=== PATIENT | female | born 1960 | race Caucasian/White ===

== ENCOUNTER 2018-12-25 07:23 | Inpatient (IN) | payer SELFPAY ==
[~2018-12-25] VITALS: Ht 157.5 cm; Wt 182.0 kg
[2018-12-25 07:30] VITALS: Ht 157.5 cm; Wt 182.0 kg
[2018-12-25 08:13] LABS: PLATELET COUNT 311 x10^3mcL (130-400)
[2018-12-25 08:15] LABS: RED CELL DISTRIBUTION WIDTH 14.9 % (11.5-14.5)
[2018-12-25 08:16] LABS: BASOPHIL % 0 % (0-2)
[2018-12-25 08:42] LABS: CALCIUM 9.8 mg/dL (8.5-10.1); CARBON DIOXIDE 30.6 mmol/L (21-32); CREATININE SERUM 1.2 mg/dL (0.6-1.0); POTASSIUM SERUM 3.1 mmol/L (3.5-5.1)
[2018-12-25 08:47] LABS: BILIRUBIN TOTAL 0.62 mg/dL (0.20-1.00)
[2018-12-25 08:59] LABS: ALBUMIN 2.9 g/dL (3.4-5.0); TOTAL PROTEIN, SERUM 9.5 g/dL (6.4-8.2)
[2018-12-25] MEDS ORDERED: COZAAR25 M1 PO (10:03)
[2018-12-25] MEDS ORDERED: LASIX40 MG PO (10:04)
[2018-12-25] MEDS ORDERED: POTASSIUM CHLO10 MEQ PO (10:04)
[2018-12-25 12:28] VITALS: BP 130/101
[2018-12-25 13:28] LABS: CHOLESTEROL/HDL RATIO 3.9; MAGNESIUM 2.4 mg/dL (1.8-2.4); PHOSPHOROUS 4.8 mg/dL (2.5-4.9)
[2018-12-25 15:26] VITALS: BP 44/30
[2018-12-25 17:29] VITALS: BP 64/45
[2018-12-25 17:35] VITALS: BP 64/45
[2018-12-25 19:30] VITALS: BP 69/53
[2018-12-25 20:05] VITALS: BP 68/54
[2018-12-26 05:30] LABS: PLATELET COUNT 245 x10^3mcL (130-400)
[2018-12-26 05:34] LABS: CALCIUM 7.2 mg/dL (8.5-10.1); CREATININE SERUM 3.8 mg/dL (0.6-1.0); MAGNESIUM 2.9 mg/dL (1.8-2.4)
[2018-12-26 05:37] LABS: POTASSIUM SERUM 6.3 mmol/L (3.5-5.1)
[2018-12-26 05:38] LABS: PHOSPHOROUS 15.1 mg/dL (2.5-4.9)
[2018-12-26 05:42] LABS: RED CELL DISTRIBUTION WIDTH 16.3 % (11.5-14.5)
[2018-12-26 06:04] LABS: BAND NEUTROPHIL 18 % (0-10); METAMYELOCTE 3 % (0-2); MONOCYTE 2 % (0-7); MYELOCYTE 3 % (0-2); PROMYELOCYTE 1 % (0-0); SEGMENTED NEUTROPHILS 66 % (37-75); rbc morphology (normal/abnorm) ABNORMAL (NORMAL)
== END 2018-12-26 11:50 | disposition expired | DRG 871 ==
LOC: ED 07:23 → DU 10:37 → IC 15:00
PROVIDERS: Emergency Medicine; Surgery; ADMIT Internal Medicine
PROC: 0BH17EZ Insertion of Endotracheal Airway into Trachea, Via Natural or Artificial Opening (ICD-10-PCS; 2018-12-25)
PROC: 02HV33Z Insertion of Infusion Device into Superior Vena Cava, Percutaneous Approach (ICD-10-PCS; 2018-12-25)
PROC: B548ZZA Ultrasonography of Superior Vena Cava, Guidance (ICD-10-PCS; 2018-12-25)
PROC: 5A12012 Performance of Cardiac Output, Single, Manual (ICD-10-PCS; 2018-12-25)
PROC: 5A1935Z Respiratory Ventilation, Less than 24 Consecutive Hours (ICD-10-PCS; principal; 2018-12-25 12:30)
DX: A41.9 Sepsis, unspecified organism (principal); J96.01 Acute respiratory failure with hypoxia; R65.21 Severe sepsis with septic shock; E43 Unspecified severe protein-calorie malnutrition; I21.4 Non-ST elevation (NSTEMI) myocardial infarction; N17.0 Acute kidney failure with tubular necrosis; K43.6 Other and unspecified ventral hernia with obstruction, without gangrene; Z68.45 Body mass index [BMI] 70 or greater, adult; E87.1 Hypo-osmolality and hyponatremia; I46.9 Cardiac arrest, cause unspecified; Z66 Do not resuscitate; E66.01 Morbid (severe) obesity due to excess calories; I87.8 Other specified disorders of veins; I49.01 Ventricular fibrillation; N18.9 Chronic kidney disease, unspecified; I12.9 Hypertensive chronic kidney disease with stage 1 through stage 4 chronic kidney disease, or unspecified chronic kidney disease; E86.0 Dehydration; E87.6 Hypokalemia; E83.39 Other disorders of phosphorus metabolism; E83.52 Hypercalcemia; Z90.710 Acquired absence of both cervix and uterus; Z23 Encounter for immunization; Z91.14 Patient's other noncompliance with medication regimen
CPT/HCPCS: 36556; 82962; 83880; A4628; J1642; J1956; J2060; J2250; J2270; J2370; J2405; J2543; J2704; J3010; J3370; J3480; J3490; J7030; Q0092